=== PATIENT | female | born 1970 | race Caucasian/White ===

== ENCOUNTER 2018-02-12 17:55 | Emergency (ER) | payer MEDICAID ==
[~2018-02-12] VITALS: Ht 167.6 cm; Wt 104.5 kg
[~2018-02-12 17:55] MED LIST: ALBU8HFA PO; PRED50TA PO
[2018-02-12 19:10] LABS: ETHANOL < 0.010 GM/DL (0.0-0.010)
[2018-02-12 20:32] LABS: URINE AMPHETAMINE SCREEN NEGATIVE (Neg); URINE BARBITUATE SCREEN NEGATIVE (Neg); URINE BENZODIAZEPINES SCREEN NEGATIVE (Neg); URINE CANNABINOID SCREEN NEGATIVE (Neg); URINE COCAINE SCREEN NEGATIVE (Neg); URINE METHADONE SCREEN NEGATIVE (Neg); URINE OPIATE SCREEN NEGATIVE (Neg); URINE PHENCYCLIDINE SCREEN NEGATIVE (Neg)
[2018-02-12] MEDS ORDERED: acetaminophen 325mg tablet PO ONE (22:55)
[2018-02-13] MEDS ORDERED: acetaminophen 325mg tablet PO ONE (06:05)
[2018-02-13] MEDS ORDERED: ALBU18HF2 INH (14:22)
[2018-02-13] MEDS ORDERED: LOSA1TAB36 PO (14:42)
[2018-02-13] MEDS ORDERED: METF500T PO (14:42)
[2018-02-13] MEDS ORDERED: SIMV10TA6 PO (14:42)
[2018-02-13] MEDS ORDERED: OXYB5TAB11 PO (14:42)
[2018-02-13] MEDS ORDERED: TRAZ300T2 PO (14:42)
[2018-02-13 14:59] LABS: CLARITY,URINE CLOUDY (Clear); COLOR,URINE YELLOW (Yellow); GLUCOSE, URINE NEGATIVE (Neg); KETONES,URINE NEGATIVE (Neg); LEUKOCYTE ESTERASE ,URINE SMALL (Neg); NITRITES, URINE NEGATIVE (Neg); OCCULT BLOOD,URINE LARGE (Neg); PROTEIN,URINE NEGATIVE (Neg); UROBILINOGEN,URINE 0.2 E.U/dL (0.2-1.0)
[2018-02-13] MEDS ORDERED: albuterol 2.5 MG/3 ML nebule NEB PRN (15:10)
[2018-02-13 15:12] LABS: UA COLLECTION TYPE CLN CATCH MIDSTREAM
[2018-02-13 15:15] LABS: BACTERIA,URINE 2+ /HPF (Neg); SQUAMOUS EPITHELIAL CELL,UR MODERATE /LPF (FEW); WBC,URINE 20-30 /HPF (0-4)
[2018-02-13 15:16] LABS: WBC CLUMPS,URINE FEW /HPF (NEGATIVE)
[2018-02-13] MEDS ORDERED: NITR100C6 PO (15:54)
[2018-02-13] MEDS ORDERED: nitrofuran/nitrofuran macrocrysal 100 MG capsule PO ONE (15:55)
[2018-02-13] MEDS ORDERED: metFORMIN 500mg tablet PO SCH (17:30)
[2018-02-13 17:35] VITALS: BP 130/75
[2018-02-13] MEDS ORDERED: oxybutynin 5mg tablet PO SCH (21:00)
[2018-02-13] MEDS ORDERED: atorvastatin 10mg tablet PO SCH (21:00)
[2018-02-13] MEDS ORDERED: traZODone 150mg tablet PO SCH (21:00)
[2018-02-14] MEDS ORDERED: HYDROchlorothiazide 12.5mg capsule PO SCH (08:00)
[2018-02-14] MEDS ORDERED: losartan 50mg tablet PO SCH (08:00)
== END 2018-02-13 19:59 ==
LOC: ER 17:56
DX: R45.851 Suicidal ideations (principal); R45.850 Homicidal ideations; K21.9 Gastro-esophageal reflux disease without esophagitis; E11.9 Type 2 diabetes mellitus without complications; Z88.2 Allergy status to sulfonamides; Z88.5 Allergy status to narcotic agent; Z79.899 Other long term (current) drug therapy
CPT/HCPCS: 36415; 80305; 80320; 81001; 82948; 84443; 87088; 99285

== ENCOUNTER 2019-09-28 16:17 | Emergency (ER) | payer MEDICAID ==
[~2019-09-28] VITALS: Ht 167.6 cm; Wt 102.6 kg
[~2019-09-28 16:17] MED LIST changes: +ALBU18HF2 INH; -ALBU8HFA PO; +LOSA1TAB36 PO; +METF500T PO; +NITR100C6 PO; +OXYB5TAB16 PO; -PRED50TA PO; +SIMV10TA98 PO; +TRAZ300T2 PO
[2019-09-28 16:30] VITALS: BP 145/85
[2019-09-28] MEDS ORDERED: ketorolac tromethamine 15mg/ml inj. IM ONE (17:30)
[2019-09-28] MEDS ORDERED: orphenadrine citrate 60mg/2ml inj. IM ONE (17:30)
[2019-09-28] MEDS ORDERED: ORPH100T2 PO (17:36)
[2019-09-28] MEDS ORDERED: IBUP-1984 PO (17:36)
== END 2019-09-28 18:02 | disposition home or self-care (01) ==
LOC: ER 16:17
DX: M54.6 Pain in thoracic spine (principal); K21.9 Gastro-esophageal reflux disease without esophagitis; E11.9 Type 2 diabetes mellitus without complications; F31.9 Bipolar disorder, unspecified; Z88.2 Allergy status to sulfonamides; Z88.5 Allergy status to narcotic agent; Z79.899 Other long term (current) drug therapy
CPT/HCPCS: 96372; 99284; J1885; J2360

== ENCOUNTER 2019-10-09 12:27 | Emergency (ER) | payer MEDICAID ==
[~2019-10-09] VITALS: Ht 167.6 cm; Wt 105.5 kg
[~2019-10-09 12:27] MED LIST changes: +ORPH100T2 PO
[2019-10-09 13:01] LABS: URINE HCG NEGATIVE (NEG)
[2019-10-09 13:03] LABS: CLARITY,URINE SLIGHTLY CLOUDY (Clear); COLOR,URINE YELLOW (Yellow); GLUCOSE, URINE >=1000 mg/dl (Neg); KETONES,URINE 15 mg/dl (Neg); LEUKOCYTE ESTERASE ,URINE NEGATIVE (Neg); NITRITES, URINE NEGATIVE (Neg); OCCULT BLOOD,URINE NEGATIVE (Neg); PROTEIN,URINE NEGATIVE (Neg)
[2019-10-09 13:14] LABS: UA COLLECTION TYPE CLN CATCH MIDSTREAM
[2019-10-09 13:16] LABS: MUCUS STRANDS MODERATE /LPF (Neg); RBC,URINE 0-2 /HPF (0-2); SQUAMOUS EPITHELIAL CELL,UR MANY /LPF (FEW)
[2019-10-09 13:17] LABS: BACTERIA,URINE 2+ /HPF (Neg)
[2019-10-09] MEDS ORDERED: normal saline 1000ml 1,000 ML IV ONE ×2 (13:20→15:20)
[2019-10-09] MEDS ORDERED: ketorolac tromethamine 15mg/ml inj. IV ONE (13:20)
[2019-10-09 13:40] LABS: BASOPHILS # (AUTO) 0.1 X10'3 (0-0.2); BASOPHILS % (AUTO) 0.8 % (0-1); EOSINOPHILS # (AUTO) 0.5 X10'3 (0-0.9); EOSINOPHILS % (AUTO) 7.6 % (0-6); HEMATOCRIT 43.8 % (35.0-45.0); HEMOGLOBIN 15.1 g/dl (12.0-16.0); LYMPHOCYTES # (AUTO) 2.1 X10'3 (1.1-4.8); LYMPHOCYTES % (AUTO) 31.5 % (21-51); MEAN CORPUSCULAR HEMOGLOBIN 30.6 PG (27.0-31.0); MEAN CORPUSCULAR HGB CONC 34.4 g/dL (33.0-36.5); MEAN PLATELET VOLUME 8.2 FL (7.4-10.4); MONOCYTES # (AUTO) 0.5 X10'3 (0-0.9); MONOCYTES % (AUTO) 8.3 % (2-12); NEUTROPHILS # (AUTO) 3.4 X10'3 (1.8-7.7); NEUTROPHILS % (AUTO) 51.8 % (42-75); PLATELET COUNT 216 X10'3 (140-440); RED BLOOD COUNT 4.92 X10'6 (4.20-5.60); RED CELL DISTRIBUTION WIDTH 14.1 % (11.5-14.5); WHITE BLOOD COUNT 6.6 X10'3 (4.5-11.0)
[2019-10-09 14:08] LABS: ALANINE AMINOTRANSFERASE 35 U/L (12-78); ALBUMIN 3.3 G/DL (3.4-5.0); ALBUMIN/GLOBULIN RATIO 0.9 (1.1-1.5); ALKALINE PHOSPHATASE 61 IU/L (46-116); ANION GAP 10 (8-16); ASPARTATE AMINO TRANSFERASE 22 U/L (10-37); BILIRUBIN,TOTAL 0.3 MG/DL (0.1-1.0); BLOOD UREA NITROGEN 13 MG/DL (7-18); BUN/CREATININE RATIO 11.3 (6.6-38.0); CALCIUM 8.5 MG/DL (8.5-10.1); CHLORIDE 100 MMOL/L (99-107); CREATININE 1.15 MG/DL (0.40-0.90); GLUCOSE 379 MG/DL (70-104); LIPASE 62 U/L (73-393); POTASSIUM 4.3 MMOL/L (3.5-5.1); SODIUM 138 MMOL/L (135-145); TOTAL CARBON DIOXIDE 27.8 MMOL/L (24-32); TOTAL PROTEIN 6.8 G/DL (6.4-8.2); eGFR 50 ML/MIN
[2019-10-09] MEDS ORDERED: meclizine 12.5mg tablet PO ONE (15:20)
[2019-10-09] MEDS ORDERED: CEPH250T PO (17:55)
[2019-10-09] MEDS ORDERED: MECL-183 PO (17:56)
[2019-10-09 18:20] VITALS: BP 120/74
== END 2019-10-09 18:24 | disposition home or self-care (01) ==
LOC: ER 12:27
DX: N39.0 Urinary tract infection, site not specified (principal); R42 Dizziness and giddiness; H81.10 Benign paroxysmal vertigo, unspecified ear; R10.32 Left lower quadrant pain; K21.9 Gastro-esophageal reflux disease without esophagitis; E11.9 Type 2 diabetes mellitus without complications; F31.9 Bipolar disorder, unspecified; Z88.2 Allergy status to sulfonamides; Z88.5 Allergy status to narcotic agent; Z79.2 Long term (current) use of antibiotics; Z79.899 Other long term (current) drug therapy
CPT/HCPCS: 36415; 74176; 80053; 81001; 81025; 83690; 85025; 93005; 96361; 96374; 99285; J1885; J7030; J8597

== ENCOUNTER 2024-03-21 13:25 | Emergency (ER) | payer MEDICAID ==
[~2024-03-21] VITALS: Ht 167.6 cm; Wt 130.9 kg
[~2024-03-21 13:25] MED LIST changes: +MECL-226 PO; -ORPH100T2 PO; +ORPH100T4 PO; -OXYB5TAB16 PO; +OXYB5TAB21 PO
[2024-03-21 14:21] LABS: BASOPHILS # (AUTO) 0.1 X10'3 (0-0.2); LYMPHOCYTES # (AUTO) 1.8 X10'3 (1.1-4.8); MEAN CORPUSCULAR HGB CONC 33.5 g/dL (33.0-36.5)
[2024-03-21 14:24] LABS: BASOPHILS % (AUTO) 0.6 % (0-1); EOSINOPHILS % (AUTO) 0.2 % (0-6); HEMATOCRIT 35.5 % (35.0-45.0); HEMOGLOBIN 11.9 g/dl (12.0-16.0); MEAN CORPUSCULAR HEMOGLOBIN 28.1 PG (27.0-31.0); MEAN CORPUSCULAR VOLUME 83.8 FL (78-98); MEAN PLATELET VOLUME 6.7 FL (7.4-10.4); MONOCYTES % (AUTO) 5.1 % (2-12); NEUTROPHILS # (AUTO) 16.8 X10'3 (1.8-7.7); NEUTROPHILS % (AUTO) 85.1 % (42-75); PLATELET COUNT 769 X10'3 (140-440); RED BLOOD COUNT 4.24 X10'6 (4.20-5.60); RED CELL DISTRIBUTION WIDTH 15.1 % (11.5-14.5); WHITE BLOOD COUNT 19.8 X10'3 (4.5-11.0)
[2024-03-21 14:31] LABS: ALANINE AMINOTRANSFERASE 22 U/L (12-78); ALBUMIN 2.5 G/DL (3.4-5.0); ALBUMIN/GLOBULIN RATIO 0.5 (1.1-1.5); ALKALINE PHOSPHATASE 102 IU/L (46-116); ANION GAP 10 (8-16); ASPARTATE AMINO TRANSFERASE 32 U/L (10-37); BILIRUBIN,TOTAL 1.2 MG/DL (0.1-1.0); BLOOD UREA NITROGEN 10 MG/DL (7-18); BUN/CREATININE RATIO 10.6 (10.0-20.0); CALCIUM 8.7 MG/DL (8.5-10.1); CHLORIDE 94 MMOL/L (99-107); CREATININE 0.94 MG/DL (0.40-0.90); GLUCOSE 201 MG/DL (70-104); SODIUM 136 MMOL/L (135-145); TOTAL PROTEIN 7.4 G/DL (6.4-8.2); eCRCL 63 ML/MIN; eGFR 62 ML/MIN
[2024-03-21 14:43] LABS: PRO BRAIN NATRIURETIC PEPTIDE 173 PG/ML (0-125)
[2024-03-21 15:33] LABS: MAGNESIUM 2.1 MG/DL (1.5-2.4)
[2024-03-21 15:38] LABS: ANISOCYTOSIS FEW; PLATELET ESTIMATE INCREASED; TOTAL CELLS COUNTED 100
[2024-03-21 15:39] LABS: POLYCHROMASIA 1+; STOMATOCYTES 2+
[2024-03-21] MEDS: magnesium sulf-water 2g/50mL 50 ML IV ONE (15:44)
[2024-03-21] MEDS: potassium CL 10mEq/100ml bag 100 ML IV ONE (15:46)
[2024-03-21] MEDS: potassium Cl 20 mEq SR tablet PO ONE (15:47)
[2024-03-21] MEDS ORDERED: iohexol 300mg/ml 100ml inj. ONE (16:58)
[2024-03-21] MEDS ORDERED: ondansetron/PF 4mg/2ml inj IV PRN (17:15)
[2024-03-21] MEDS ORDERED: potassium Cl 20 mEq SR tablet PO PRN ×2 (17:15)
[2024-03-21] MEDS ORDERED: magnesium sulf-water 2g/50mL 50 ML IV PRN (17:15)
[2024-03-21] MEDS ORDERED: normal saline 1000ml 1,000 ML IV SCH (17:15)
[2024-03-21] MEDS ORDERED: magnesium Cl slow-release 64mg tablet PO PRN (17:15)
[2024-03-21] MEDS ORDERED: acetaminophen 325mg tablet PO PRN ×2 (17:15)
[2024-03-21] MEDS ORDERED: magnesium sulf-water 4G/100mL 100 ML IV PRN (17:15)
[2024-03-21] MEDS ORDERED: mag hydrox/Alum hydrox/simeth 30ml oral suspension PO PRN (17:15)
[2024-03-21] MEDS ORDERED: potassium Cl 40MEQ/1/2NS 520ml 520 ML IV PRN (17:15)
[2024-03-21] MEDS: normal saline 1000ML IV soln IVB ONE ×4 (17:22→19:10)
[2024-03-21 17:28] LABS: APTT 25 SECONDS (22-32); INR 1.2 INR; PROTHROMBIN TIME 12.6 SECONDS (9.0-12.0)
[2024-03-21 18:09] LABS: HEMOGLOBIN A1C 6.8 % (4.5-6.2)
[2024-03-21 18:49] LABS: D-DIMER 6.61 MG/L FEU (0-0.50)
[2024-03-21] MEDS ORDERED: iohexol 350MG/ML 100ml bottle IV ONE (19:09)
[2024-03-21] MEDS: sodium bicarbonate (8.4%) 1 mEq/ml syringe IV ONE (19:10)
[2024-03-21] MEDS ORDERED: heparin, porcine 5000 units/ml vial SQ SCH (20:00)
[2024-03-21] MEDS ORDERED: K and/or MAG REPLACEMENT MC SCH (20:00)
[2024-03-21 21:32] LABS: BILIRUBIN,URINE MODERATE (Neg); CLARITY,URINE SLIGHTLY CLOUDY (Clear); COLOR,URINE AMBER (Yellow); GLUCOSE, URINE 100 mg/dl (Neg); KETONES,URINE >=80 mg/dl (Neg); LEUKOCYTE ESTERASE ,URINE NEGATIVE (Neg); NITRITES, URINE NEGATIVE (Neg); OCCULT BLOOD,URINE NEGATIVE (Neg); PH,URINE 8.5 (4.8-8.0); PROTEIN,URINE 100 mg/dl (Neg)
[2024-03-21] MEDS: potassium bicarbonate/cit acid 25mEq tablet.effervescent PO ONE (21:40)
[2024-03-21 21:43] LABS: BACTERIA,URINE FEW /HPF (Neg); SQUAMOUS EPITHELIAL CELL,UR MANY /LPF (FEW); UA COLLECTION TYPE NON-SPECIFIED; WBC,URINE 0-4 /HPF (0-4)
[2024-03-21 21:44] LABS: MUCUS STRANDS MODERATE /LPF (Neg)
[2024-03-21] MEDS: CefTRIAXone/D5W-Rocephin 1gm 50 ML IV ONE (22:15)
[2024-03-22 00:15] VITALS: PULSE 86
[2024-03-22] MEDS ORDERED: DOXY100T2 PO (01:23)
[2024-03-22] MEDS ORDERED: METR-159 PO (01:23)
[2024-03-22] MEDS ORDERED: HYDR-3965 PO (01:23)
[2024-03-22] MEDS ORDERED: ONDA-243 PO (01:23)
[2024-03-22 02:19] VITALS: BP 122/44; RESP 16; TEMP 98.5; O2SAT 98
[2024-03-22] MEDS: DOXYCYCLINE 100MG CAPSULE PO STA (02:25)
[2024-03-22] MEDS: HYDROcodone/acetaminophen 5mg/325mg tablet PO ONE (02:26)
[2024-03-22] MEDS: metroNIDAZOLE 500mg tablet PO ONE (02:26)
== END 2024-03-21 18:00 | disposition home or self-care (01) ==
LOC: ER 13:26 → UNDOADMIN 17:21 → ED HOLD 17:21 → UNDODISIN 18:00 → ER 18:00
DX: R55 Syncope and collapse (principal); R19.00 Intra-abdominal and pelvic swelling, mass and lump, unspecified site; E11.9 Type 2 diabetes mellitus without complications; K21.9 Gastro-esophageal reflux disease without esophagitis; F31.9 Bipolar disorder, unspecified; E86.0 Dehydration; Z88.5 Allergy status to narcotic agent; Z88.2 Allergy status to sulfonamides
CPT/HCPCS: 36415; 71045; 71275; 74177; 76856; 80053; 81001; 83036; 83605; 83735; 83880; 84145; 84484; 85007; 85025; 85379; 85610; 85730; 87040; 93005; 96361; 96365; 96366; 96367; 96368; 96375; 99291; 99292; A6258; J0696; J3480; J3490; J7030; Q9967; G0378

== ENCOUNTER 2024-03-31 13:10 | Emergency (ER) | payer MEDICAID ==
[~2024-03-31] VITALS: Ht 167.6 cm; Wt 81.0 kg
[~2024-03-31 13:10] MED LIST changes: +DOXY100T2 PO; +HYDR-3965 PO; +ONDA-243 PO
[2024-03-31 13:33] LABS: BASOPHILS # (AUTO) 0.1 X10'3 (0-0.2); BASOPHILS % (AUTO) 0.8 % (0-1); EOSINOPHILS % (AUTO) 0.3 % (0-6); HEMATOCRIT 39.4 % (35.0-45.0); HEMOGLOBIN 12.9 g/dl (12.0-16.0); LYMPHOCYTES # (AUTO) 1.9 X10'3 (1.1-4.8); LYMPHOCYTES % (AUTO) 20.8 % (21-51); MEAN CORPUSCULAR HEMOGLOBIN 28.4 PG (27.0-31.0); MEAN CORPUSCULAR HGB CONC 32.8 g/dL (33.0-36.5); MEAN CORPUSCULAR VOLUME 86.5 FL (78-98); MEAN PLATELET VOLUME 6.9 FL (7.4-10.4); MONOCYTES # (AUTO) 0.4 X10'3 (0-0.9); MONOCYTES % (AUTO) 4.8 % (2-12); NEUTROPHILS # (AUTO) 6.8 X10'3 (1.8-7.7); NEUTROPHILS % (AUTO) 73.3 % (42-75); PLATELET COUNT 649 X10'3 (140-440); RED BLOOD COUNT 4.55 X10'6 (4.20-5.60); RED CELL DISTRIBUTION WIDTH 16.7 % (11.5-14.5); WHITE BLOOD COUNT 9.2 X10'3 (4.5-11.0)
[2024-03-31 13:52] LABS: ALANINE AMINOTRANSFERASE 8 U/L (12-78); ALBUMIN 3.2 G/DL (3.4-5.0); ALBUMIN/GLOBULIN RATIO 0.6 (1.1-1.5); ALKALINE PHOSPHATASE 69 IU/L (46-116); ANION GAP 4 (8-16); ASPARTATE AMINO TRANSFERASE 13 U/L (10-37); BILIRUBIN,TOTAL 0.6 MG/DL (0.1-1.0); BLOOD UREA NITROGEN 4 MG/DL (7-18); BUN/CREATININE RATIO 4.7 (10.0-20.0); CALCIUM 9.7 MG/DL (8.5-10.1); CHLORIDE 97 MMOL/L (99-107); CREATININE 0.85 MG/DL (0.40-0.90); GLUCOSE 203 MG/DL (70-104); POTASSIUM 4.2 MMOL/L (3.5-5.1); SODIUM 138 MMOL/L (135-145); TOTAL PROTEIN 8.3 G/DL (6.4-8.2); eCRCL 70 ML/MIN; eGFR 69 ML/MIN
[2024-03-31 13:59] LABS: PRO BRAIN NATRIURETIC PEPTIDE 333 PG/ML (0-125)
[2024-03-31 16:22] LABS: APTT 25 SECONDS (22-32); INR 1.1 INR; PROTHROMBIN TIME 11.4 SECONDS (9.0-12.0)
[2024-03-31 16:36] LABS: FREE T4 (FREE THYROXINE) 0.95 NG/DL (0.73-1.40); PRO BRAIN NATRIURETIC PEPTIDE 314 PG/ML (0-125); THYROID STIMULATING HORMONE 4.01 ulU/ml (0.34-4.50)
[2024-03-31 20:51] LABS: BILIRUBIN,URINE SMALL (Neg); CLARITY,URINE CLOUDY (Clear); COLOR,URINE YELLOW (Yellow); GLUCOSE, URINE NEGATIVE (Neg); KETONES,URINE 15 mg/dl (Neg); LEUKOCYTE ESTERASE ,URINE NEGATIVE (Neg); NITRITES, URINE NEGATIVE (Neg); OCCULT BLOOD,URINE NEGATIVE (Neg); PROTEIN,URINE 30 mg/dl (Neg); UROBILINOGEN,URINE 0.2 E.U/dL (0.2-1.0)
[2024-03-31 20:56] LABS: UA COLLECTION TYPE NON-SPECIFIED
[2024-03-31 20:57] LABS: BACTERIA,URINE 2+ /HPF (Neg); RBC,URINE NONE SEEN /HPF (0-2); SQUAMOUS EPITHELIAL CELL,UR MANY /LPF (FEW); WBC,URINE 0-4 /HPF (0-4)
[2024-03-31 21:00] VITALS: BP 154/90; PULSE 80; RESP 16; TEMP 98.8; O2SAT 98
== END 2024-03-31 21:11 | disposition home or self-care (01) ==
LOC: ER 13:11
DX: R55 Syncope and collapse (principal); E11.9 Type 2 diabetes mellitus without complications; K21.9 Gastro-esophageal reflux disease without esophagitis; Z88.2 Allergy status to sulfonamides; Z88.5 Allergy status to narcotic agent; Z79.899 Other long term (current) drug therapy
CPT/HCPCS: 36415; 70450; 71045; 80053; 81001; 82948; 83880; 84439; 84443; 84484; 85025; 85610; 85730; 93005; 99285

== ENCOUNTER 2024-05-16 16:36 | Emergency (ER) | payer MEDICAID ==
[~2024-05-16] VITALS: Ht 167.6 cm; Wt 99.8 kg
[~2024-05-16 16:36] MED LIST changes: -HYDR-3965 PO
[2024-05-16 16:44] VITALS: TEMP 97
[2024-05-16 17:18] LABS: BASOPHILS % (AUTO) 0.3 % (0-1); EOSINOPHILS # (AUTO) 0.1 X10'3 (0-0.9); EOSINOPHILS % (AUTO) 1.7 % (0-6); HEMOGLOBIN 12.4 g/dl (12.0-16.0); LYMPHOCYTES # (AUTO) 1.5 X10'3 (1.1-4.8); LYMPHOCYTES % (AUTO) 22.2 % (21-51); MEAN CORPUSCULAR HGB CONC 34.4 g/dL (33.0-36.5); MEAN CORPUSCULAR VOLUME 87.2 FL (78-98); MEAN PLATELET VOLUME 7.2 FL (7.4-10.4); MONOCYTES # (AUTO) 0.4 X10'3 (0-0.9); MONOCYTES % (AUTO) 6.4 % (2-12); NEUTROPHILS # (AUTO) 4.6 X10'3 (1.8-7.7); NEUTROPHILS % (AUTO) 69.4 % (42-75); PLATELET COUNT 314 X10'3 (140-440); RED BLOOD COUNT 4.13 X10'6 (4.20-5.60); RED CELL DISTRIBUTION WIDTH 16.8 % (11.5-14.5); WHITE BLOOD COUNT 6.6 X10'3 (4.5-11.0)
[2024-05-16 17:33] LABS: ALANINE AMINOTRANSFERASE 12 U/L (12-78); ALBUMIN 3.3 G/DL (3.4-5.0); ALBUMIN/GLOBULIN RATIO 0.8 (1.1-1.5); ALKALINE PHOSPHATASE 54 IU/L (46-116); ANION GAP 8 (8-16); ASPARTATE AMINO TRANSFERASE 7 U/L (10-37); BILIRUBIN,TOTAL 0.6 MG/DL (0.1-1.0); BLOOD UREA NITROGEN 7 MG/DL (7-18); CALCIUM 9.3 MG/DL (8.5-10.1); CHLORIDE 99 MMOL/L (99-107); CREATININE 0.78 MG/DL (0.40-0.90); GLUCOSE 160 MG/DL (70-104); LIPASE 17 U/L (16-77); SODIUM 136 MMOL/L (135-145); TOTAL CARBON DIOXIDE 29.2 MMOL/L (24-32); TOTAL PROTEIN 7.7 G/DL (6.4-8.2); eCRCL 76 ML/MIN; eGFR 77 ML/MIN
[2024-05-16] MEDS ORDERED: iohexol 300mg/ml 100ml inj. ONE (17:39)
[2024-05-16] MEDS: ondansetron/PF 4mg/2ml inj IV ONE (17:43)
[2024-05-16] MEDS: morphine 4 MG/ML inj SYRINge IV ONE (17:43)
[2024-05-16] MEDS ORDERED: DIVA500T9 PO (19:21)
[2024-05-16] MEDS ORDERED: ERGO500056 (19:21)
[2024-05-16] MEDS ORDERED: BUPR-561 (19:21)
[2024-05-16] MEDS ORDERED: NYST15CR36 (19:21)
[2024-05-16] MEDS ORDERED: IBUP-862 PO (20:26)
[2024-05-16] MEDS ORDERED: HYDR-3965 PO (20:26)
[2024-05-16 20:46] LABS: BILIRUBIN,URINE NEGATIVE (Neg); CLARITY,URINE CLEAR (Clear); COLOR,URINE YELLOW (Yellow); GLUCOSE, URINE NEGATIVE (Neg); KETONES,URINE 15 mg/dl (Neg); LEUKOCYTE ESTERASE ,URINE NEGATIVE (Neg); NITRITES, URINE NEGATIVE (Neg); OCCULT BLOOD,URINE NEGATIVE (Neg); PH,URINE 7.5 (4.8-8.0); PROTEIN,URINE TRACE mg/dl (Neg); UROBILINOGEN,URINE 0.2 E.U/dL (0.2-1.0)
[2024-05-16 20:47] LABS: UA COLLECTION TYPE VOIDED
[2024-05-16] MEDS: ketorolac trometh 15mg/ml vial 15 MG/ML ML IV ONE (20:48)
[2024-05-16 20:52] LABS: BACTERIA,URINE FEW /HPF (Neg); RBC,URINE 0-2 /HPF (0-2); SQUAMOUS EPITHELIAL CELL,UR MODERATE /LPF (FEW); WBC,URINE 0-4 /HPF (0-4)
[2024-05-16 20:54] VITALS: BP 113/72; PULSE 72; RESP 16; O2SAT 98
== END 2024-05-16 21:02 | disposition home or self-care (01) ==
LOC: ER 16:37
DX: R19.09 Other intra-abdominal and pelvic swelling, mass and lump (principal); K21.9 Gastro-esophageal reflux disease without esophagitis; E11.9 Type 2 diabetes mellitus without complications; F32.A Depression, unspecified; Z88.2 Allergy status to sulfonamides; Z88.5 Allergy status to narcotic agent; Z79.899 Other long term (current) drug therapy
CPT/HCPCS: 36415; 74177; 76700; 76856; 80053; 81001; 83690; 85025; 93976; 96374; 96375; 99285; J1885; J2270; J2405; Q9967